=== PATIENT | female | born 1950 | race Caucasian/White ===

== ENCOUNTER 2018-06-06 13:23 | Day surgery (SDC) | payer OTHER ==
[~2018-06-06 13:23] MED LIST: CIPRO500 MG PO; PERCOCET 5/321 UDTAB PO; RECTICARE30 GM TP
== END 2018-06-06 17:15 | disposition home or self-care (01) ==
LOC: AMB-ENDOS 13:23
DX: K64.8 Other hemorrhoids (principal); K57.30 Diverticulosis of large intestine without perforation or abscess without bleeding